=== PATIENT | female | born 2000 | race Native Hawaiian/Other Pacific Islander ===

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

== ENCOUNTER 2018-06-28 18:46 | Outpatient (CLI) | payer OTHER ==
[2018-06-28] MEDS ORDERED: LACTATED RINGERS 1,000 ML IV ONE (19:28)
[2018-06-28 19:55] LABS: Bacteria,Urine 1+ /HPF (Negative); Bilirubin,Urine NEG (Negative); Blood,Urine NEG (Negative); Color,Urine Amber (Yellow); Mucus,Urine 2+ /HPF
[2018-06-28 20:20] LABS: Basophils % (Auto) 0.6 % (0.0-1.8); Eosinophils % (Auto) 0.2 % (0.0-4.3); Hematocrit 38.4 % (30.3-42.9); Hemoglobin 13.4 gm/dl (10.1-14.3); Lymphocytes # (Auto) 1.2 K/mm3 (1.2-5.4); Lymphocytes % (Auto) 16.5 % (13.4-35.0); Mean Corpuscular HGB Conc 35 % (30-34); Mean Corpuscular Volume 91 fl (79-97); Monocytes # (Auto) 0.7 K/mm3 (0.0-0.8); Monocytes % (Auto) 8.8 % (0.0-7.3); Platelet Count 179 K/mm3 (140-440); Red Blood Count 4.24 M/mm3 (3.65-5.03); Red Cell Distribution Width 13.3 % (13.2-15.2)
[2018-06-28 20:50] LABS: Alanine Aminotransferase 33 units/L (7-56); Albumin 3.7 g/dL (3.9-5); BUN/Creatinine Ratio 14; Blood Urea Nitrogen 7 mg/dL (7-17); Calcium 8.8 mg/dL (8.4-10.2); Hemolysis Index 11
--- NOTE | 2018-06-28 20:50 | Ultrasound Report ---
PROCEDURE: US OB BPP WO NON-STRESS TECHNIQUE: Sonographic evaluation for breathing, movement, tone, and amniotic flui d volume was performed. HISTORY: well being BPP COMPARISONS: None . FINDINGS: FETUS Amniotic fluid volume Normal-score 2. At least one vertical pocket >2 cm or more in vertical axis . breathing: Normal-score 2 . movement: Normal-score 2 . tone: Normal-score 2 . Score: 8 of 8 . IMPRESSION: Normal biophysical profile . This document is electronically signed by Allison Lei DO., June 28 2018 08:47:48 PM ET
--- NOTE | 2018-06-28 20:52 | Ultrasound Report ---
PROCEDURE: US OB LIMITED TECHNIQUE: Real-time limited sonographic examination was performed for evaluation of well-bein g for each fetus with image documentation (1 or more fetuses). HISTORY: abdominal pain COMPARISONS: None . FINDINGS: There is a single fetus in a vertex presentation. heart rate 1 51 bpm. The 4 quadrant amniotic fluid volume is 8.3 cm. Length of the long the left lateral uterus. There is no evidence of previa. T here is no evidence of placental abruption. IMPRESSION: There is a single fetus in a vertex presentation. The placenta is along the left lateral uterus with no evidence of previa or abruption. This document is electronically signed by Allison Lei DO., June 28 2018 08:49:43 PM ET
[2018-06-28 21:51] VITALS: BP 100/61
--- NOTE | 2018-06-28 22:45 | Progress Note ---
Assessment and Plan A: at 38 weeks gestation. Nausea and vomiting. Dehydration; hydrated with IV LR. BPP 8/8; normal ANGELA; patient now feeling active movement. Not in active labor; contractions resolved with IV hydration. Mild tachycardia. P: Patient sent to ED by W/C for evaluation for mild tachycardia. Rx promethazine 25 mg, #20, 1 po every 6 hours prn nausea and vomiting called to [facility]. Discussed with patient bland diet and increased po fluid intake. Advised patient to perform daily movement counting. Advised patient to follow up at her [facility] clinic on Sunday07/01/18. Subjective - Subjective Date of service: 06/28/18 Principal diagnosis: at 38 weeks; nausea and vomiting for 2 days Interval history: 17 year old presents at 38 weeks gestation complaining of nausea with vomiting for past 2 days. Patient denies diarrhea. Patient denies abdominal pain, back pain, flank pain, fever, chills, or malaise. Patient reports she feels the baby move but maybe not as much as usual for the past 2 days. Patient reports irregular mild contractions. Patient denies leaking of fluid or vaginal bleeding. She denies falls or trauma. She denies vaginal discharge. She denies dysuria or urinary frequency. She denies cough, shortness of breath, or chest pain. She states has been uneventful. Patient reports: contractions (mild irregular contractions, resolved with IV hydration), no loss of fluid, no vaginal bleeding Objective - Vital Signs Vital Signs: Vital Signs - 12hr 06/28/18 06/28/18 06/28/18 19:26 19:45 21:50 Pulse Rate 113 H 104 H 103 H Blood Pressure 113/68 108/66 100/61 O2 Sat by Pulse Oximetry 06/28/18 06/28/18 06/28/18 21:56 22:01 22:06 Pulse Rate 107 H 115 H 109 H Blood Pressure O2 Sat by Pulse 97 97 96 Oximetry 06/28/18 22:11 Pulse Rate 113 H Blood Pressure O2 Sat by Pulse 98 Oximetry - Exam Narrative Exam: BPP 8/8. Normal ANGELA. Urinalysis shows ketones. Afebrile. BPs normal. Mild tachycardia noted. Abdomen: Present: normal appearance, soft. Absent: distention, tenderness, guarding, rigidity Uterus: Present: normal, fundal height above umbilicus FHR: category 1 Uterine Contraction Monitor Mode: External Uterine Contraction Pattern: Irregular Uterine Contraction Intensity: Mild Extremities: normal - Labs Labs: Abnormal Labs 06/28/18 06/28/18 06/28/18 19:30 20:03 20:03 MCHC 35 H [place] % (Auto) 8.8 H Seg Neutrophils % 73.9 H Creatinine 0.5 L Alkaline Phosphatase 220 H Albumin 3.7 L U Epithel Cells (Auto) 17.0 H Laboratory Results - last 24 hr 06/28/18 06/28/18 06/28/18 19:30 20:03 20:03 WBC 7.4 RBC 4.24 Hgb 13.4 Hct 38.4 MCV 91 MCH 32 MCHC 35 H RDW 13.3 Plt Count 179 Lymph % (Auto) 16.5 [place] % (Auto) 8.8 H Eos % (Auto) 0.2 Baso % (Auto) 0.6 Lymph # 1.2 [place] # 0.7 Eos # 0.0 Baso # 0.0 Seg Neutrophils % 73.9 H Seg Neutrophils # 5.5 Sodium 138 Potassium 3.8 Chloride 100.3 Carbon Dioxide 22 Anion Gap 20 BUN 7 Creatinine 0.5 L Estimated GFR > 60 BUN/Creatinine Ratio 14 Glucose 78 Calcium 8.8 Total Bilirubin 0.60 AST 30 ALT 33 Alkaline Phosphatase 220 H Total Protein 6.6 Albumin 3.7 L Albumin/Globulin Ratio 1.3 Urine Color [place] Urine Turbidity Slightly-cloudy Urine pH 6.0 Ur Specific [place] 1.027 Urine Protein 30 mg/dl Urine Glucose (UA) Neg Urine Ketones 80 Urine Blood Neg Urine Nitrite Neg Urine Bilirubin Neg Urine Urobilinogen 4.0 Ur Leukocyte Esterase Neg Urine WBC (Auto) 3.0 Urine RBC (Auto) 2.0 U Epithel Cells (Auto) 17.0 H Urine Bacteria (Auto) 1+ Urine Mucus 2+
== END 2018-06-28 22:40 | disposition home or self-care (01) ==
LOC: TRG 18:46
PROVIDERS: ATTEND Obstetrics & Gynecology
DX: O47.1 False labor at or after 37 completed weeks of gestation (principal); Z3A.38 38 weeks gestation of pregnancy; Z90.49 Acquired absence of other specified parts of digestive tract
CPT/HCPCS: 36415; 76815; 76819; 80053; 81001; 85025; J7120

== ENCOUNTER 2018-07-11 21:19 | Inpatient (IN) | payer OTHER ==
[2018-07-11] MEDS ORDERED: LACTATED RINGERS 1,000 ML ONE (22:26)
[2018-07-11] MEDS ORDERED: LACTATED RINGERS 1,000 ML IV ONE (22:26)
[2018-07-12] MEDS ORDERED: BRETHINE SUB-Q PRN (00:20)
[2018-07-12] MEDS ORDERED: BRETHINE IVP PRN (00:20)
[2018-07-12] MEDS ORDERED: XYLOCAINE 2% INFILTRATI ONE (00:20)
[2018-07-12] MEDS ORDERED: MINERAL OIL PO PRN (00:20)
[2018-07-12] MEDS ORDERED: SUBLIMAZE IV PRN (00:20)
--- NOTE | 2018-07-12 00:28 | Ultrasound Report ---
PROCEDURE: US OB BPP WO NON-STRESS TECHNIQUE: Real-time limited sonographic examination was performed for evaluation of biophysical pro file for each fetus with image documentation (1 or more fetuses). HISTORY: tachycardia COMPARISONS: None . FINDINGS: breathing movements: 2. movements: 2. posture and tone: 2. Qualitative amniotic fluid volume: 2. Heart rate is 160 bpm. IMPRESSION: Total score: 8/8. This document is electronically signed by Aramis Baird MD., July 12 2018 12:25:51 AM ET
[2018-07-12 00:50] LABS: Hematocrit 36.2 % (30.3-42.9); Hemoglobin 12.5 gm/dl (10.1-14.3); Mean Corpuscular HGB Conc 35 % (30-34); Mean Corpuscular Volume 90 fl (79-97); Platelet Count 201 K/mm3 (140-440); Red Cell Distribution Width 13.3 % (13.2-15.2)
[2018-07-12] MEDS ORDERED: PITOCin/NS 20 UNIT/1000ML DRIP 20 UNITS/1,000 ML BAG IV SCH (01:00)
[2018-07-12] MEDS: LACTATED RINGERS 1,000 ML IV SCH ×2 (02:45→04:00)
[2018-07-12] MEDS ORDERED: NARCAN 2 MG/2 ML IV PRN (02:47)
--- NOTE | 2018-07-12 02:47 | Anesthesia Consultation ---
Anesthesia Consult and Med Hx Date of service: 07/12/18 - Airway Anesthetic Teeth Evaluation: Good ROM Head & Neck: Adequate Mental/Hyoid Distance: Adequate Mallampati Class: Class II Intubation Access Assessment: Good - Pulmonary Exam CTA: Yes - Cardiac Exam Cardiac Exam: RRR - Pre-Operative Health Status ASA Pre-Surgery Classification: ASA2 Proposed Anesthetic Plan: Epidural - Pulmonary Hx Smoking: No Hx Asthma: No Hx Respiratory Symptoms: No SOB: No COPD: No Home Oxygen Therapy: No Hx Pneumonia: No Hx Sleep Apnea: No - Cardiovascular System Hx Hypertension: No Hx Coronary Artery Disease: No Hx Heart Attack/AMI: No Hx Angina: No Hx Percutaneous Transluminal Coronary Angioplasty (PTCA): No Hx Cardia Arrhythmia: No Hx Pacemaker: No Hx Internal Defibrillator: No Hx Valvular Heart Disease: No Hx Heart Murmur: No Hx Peripheral Vascular Disease: No - Central Nervous System Hx Neuromuscular Disorder: No Hx Seizures: No CVA: No Hx Back Pain: No Hx Psychiatric Problems: No - Gastrointestinal Hx Ulcer: No Hx Gastroesophageal Reflux Disease: No - Endocrine Hx Renal Disease: No Hx End Stage Renal Disease: No Hx Cirrhosis: No Hx Liver Disease: No Hx Insulin Dependent Diabetes: No Hx Non-Insulin Dependent Diabetes: No Hx Thyroid Disease: No Hx Hypothyroidism: No Hx Hyperthyroidism: No - Hematic Hx Anemia: No Hx Sickle Cell Disease: No - Other Systems Hx Alcohol Use: No Hx Substance Use: No Hx Cancer: No Hx Obesity: No
[2018-07-12] MEDS ORDERED: XYLOCAINE 2%/ EPI 1:200,000 INFILTRATI ONE (02:51)
[2018-07-12] MEDS: fentaNYL-BUPIV 2 MCG/ML-0.125% 200 MCG/100 ML BAG EPIDURAL SCH ×2 (03:57→11:40)
--- NOTE | 2018-07-12 09:55 | History and Physical Report ---
History of Present Illness Date of examination: 07/12/18 Date of admission: 07/12/18 00:45 Chief complaint: Intense labor pains History of present illness: 0. 17 yo Fe , DORENE 07/26/2018 ([place]), 38w0d, presents in spontaneous labor. Pt initiated early care with [facility] at 6w6d. course uncomplicated. Pt reports history of smoking (stopped 3years ago). ................................... . 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 Referral to [facility] ([facility])). denies: abnormal PAP smear, chlamydia, gonorrhea, hepatitis B, hepatitis C, herpes, HIV, syphilis, trichomonas Family/Genetic History: none Social history: no significant social history, , lives with family, full code. denies: smoking, alcohol abuse, prescription drug abuse, IV drug use - Obstetrical History Expected Date of Delivery: 07/26/18 Actual Gestation: 38 Week(s) 0 Day(s) : 2 Para: 1 Hx # Term Pregnancies: 1 Number of Pregnancies: 0 Spontaneous Abortions: 0 Induced : 0 Number of Living Children: 1 #1 Infant Gender: Female year: 2018 Birthweight: 3.175 kg Method of Delivery: Vaginal Gestational age at delivery: 39 Complications: none Medications and Allergies Allergies Allergy/AdvReac Type Severity Reaction Status Date / Time No Known Allergies Allergy Unverified 09/05/15 21:02 Home Medications Medication Instructions Recorded Confirmed Last Taken Type Ibuprofen [Motrin 800 MG tab] 800 mg PO Q8HR PRN #30 tablet 09/07/15 Unknown Rx oxyCODONE /ACETAMINOPHEN [Percocet 2 tab PO Q4HR PRN #30 tablet 09/07/15 Unknown Rx 5/325] Ferrous Sulfate [Feosol 325 MG tab] 325 mg PO BID #60 tablet 09/08/15 Unknown Rx Famotidine [Pepcid] 20 mg PO BID #60 tablet 09/17/17 Unknown Rx Ondansetron [Zofran Odt] 4 mg PO Q8HR PRN #20 tab.rapdis 09/17/17 Unknown Rx Active Meds: Active Medications Ephedrine Sulfate (Ephedrine Sulfate) 10 mg IV Q2M PRN PRN Reason: Hypotension Fentanyl (Sublimaze) 100 mcg IV Q2H PRN PRN Reason: Labor Pain Last Admin: 07/12/18 02:00 Dose: 100 mcg Documented by: Lactated Ringer's (Lactated Ringers) 1,000 mls @ 125 mls/hr IV DIRECT TATIANA Last Admin: 07/12/18 04:00 Dose: 125 mls/hr Documented by: Oxytocin/Sodium Chloride (Pitocin/Ns 20 Unit/1000ml Drip) 20 units in 1,000 mls @ 125 mls/hr IV DIRECT TATIANA Fentanyl/Bupivacaine/Sodium Chlor (Fentanyl-Bupiv 2 Mcg/Ml-0.125%) 200 mcg in 100 mls @ 12 mls/hr EPIDURAL TITR TATIANA; Protocol Last Admin: 07/12/18 03:57 Dose: 12 mls/hr Documented by: Mineral Oil (Mineral Oil) 30 ml PO QHS PRN PRN Reason: Constipation Naloxone HCl (Narcan 2 Mg/2 Ml) 0.2 mg IV Q5M PRN PRN Reason: Respiratory sedation Terbutaline Sulfate (Brethine) 0.25 mg SUB-Q ONCE PRN PRN Reason: Hyperstimulation/Hypertonicity Terbutaline Sulfate (Brethine) 0.25 mg IVP ONCE PRN PRN Reason: Hyperstimulation/Hypertonicity Review of Systems Cardiovascular: no chest pain, no shortness of breath Respiratory: no shortness of breath Breasts: normal Gastrointestinal: no nausea, no vomiting, no diarrhea, no constipation Genitourinary: normal appearance, contractions, no vaginal discharge, no leakage of fluid, no genital sores Integumentary: no rash, no sores, no lesions Psychiatric: other (Denies) - Vital Signs Vital signs: Vital Signs Pulse BP 100 H 110/70 07/11/18 21:35 07/11/18 21:35 Temp Pulse Resp BP Pulse Ox 97.6 F 112 H 20 93/51 96 07/12/18 09:34 07/12/18 09:52 07/12/18 09:34 07/12/18 09:51 07/12/18 09:52 - Physical Exam Breasts: Positive: normal Cardiovascular: Regular rate, Normal S1, Normal S2, No murmurs Lungs: Positive: Clear to auscultation, Normal air movement Abdomen: Positive: normal appearance, soft, normal bowel sounds. Negative: distention Genitourinary (Female): Positive: normal external genitalia, normal perenium Vulva: both: normal Vagina: Positive: normal moisture Uterus: Positive: enlarged (Gravid) Anus/Rectum: Positive: normal perianal skin Extremities: Positive: normal Deep Tendon Reflex Grade: Normal +2 - Obstetrical FHR: category 1 Uterine Contraction Monitor Mode: External Cervical Dilatation: 6 (AROM 07/12/18 @ 10:01, small, clear) Cervical Effacement Percentage: 90 station: -2 Uterine Contraction Frequency (min): 4-6 Uterine Contraction Pattern: Regular Uterine Tone Measurement Phase: Resting Uterine Contraction Intensity: Moderate Results Result Diagrams: 07/11/18 22:39 Abnormal lab results 07/11/18 Range/Units 22:39 WBC 11.1 H (4.5-11.0) K/mm3 MCHC 35 H (30-34) % All other labs normal. Assessment and Plan A: Term IUP @38w 0d Category 1 tracing Active labor GBS negative Comfortable with epidural AROM 07/12/18 @10:01, small, clear P: Admit to L&D; Routine labor orders Pitocin augmentation Anticipate
[2018-07-12] MEDS ORDERED: PITOCin/NS 30 UNIT/500ML 30 UNITS/500 ML BAG IV SCH (11:00)
[2018-07-12] MEDS ORDERED: XYLOCAINE MPF 2% ONE (12:14)
[2018-07-12] MEDS ORDERED: TYLENOL PO PRN (15:25)
[2018-07-12] MEDS ORDERED: LANSINOH TP PRN (15:25)
[2018-07-12] MEDS ORDERED: ZOFRAN IV PRN (15:25)
[2018-07-12] MEDS ORDERED: MILK OF MAGNESIA PO PRN (15:25)
[2018-07-12] MEDS ORDERED: PHENERGAN PO PRN (15:25)
[2018-07-12] MEDS ORDERED: DULCOLAX PR PRN (15:25)
[2018-07-12] MEDS ORDERED: BENADRYL PO PRN (15:25)
[2018-07-12] MEDS ORDERED: NORCO 5/325 PO PRN (15:25)
--- NOTE | 2018-07-12 15:35 | Procedure Note ---
OB Delivery Note - Delivery Date of Delivery: 07/12/18 (14:48) Surgeon: GALO MORALES (JOSE) Estimated blood loss: 100cc - Vaginal Delivery presentation: vertex Delivery position: OP (Straight) Intrapartum events: none Delivery induction: none Delivery augmentation: rupture of membranes Delivery monitor: external FHT, external uterine Route of delivery: (14:48) Delivery placenta: spontaneous (14:55) Delivery cord: nuchal cord (x3, delivered intact via somersault maneuver), 3 umbilical vessels Episiotomy: none Delivery laceration: 1st degree (small; left unrepaired) Anesthesia: epidural Delivery comments: viable male infant, straight OP presentation, Nuchal cord x3, delivered intact via somersault maneuver over small 1st degree laceration at 14:48. Cord reduced x3, infant dried and stimulated, then vigorous placed on mothers abdomen. Delayed cord clamping; then cut by FOB with my guidance. Cord blood col lected per protocol. Spontaneous solis delivery of intact placenta at 14:55. 3vc. Discarded. FF@U-2. Bleeding small. Small first degree laceration approximates well. Left unrepaired. EBL 100cc. Infant and mother left in stable condition in L&D. - A at 1 minute: 8 at 5 minutes: 9 Gender: Male (7lbs 1oz, 3199grams, 19.5")
[2018-07-12] MEDS ORDERED: SODIUM CHLORIDE FLUSH SYRINGE 10 ML IV NR (16:00)
--- NOTE | 2018-07-12 16:15 | Post Anesthesia Evaluation ---
- Post Anesthesia Evaluation Patient Participated: Yes Airway Patent: Yes Stable Respiratory Function: Yes Nausea/Vomiting: No Temp > 96.8F: Yes Pain Manageable: Yes Adequeate Hydration: Yes Anesthesia Complications: No Block Receding Appropriately: Yes Patient on Ventilator: No
[2018-07-12] MEDS: IBUPROFEN PO SCH (18:10)
[2018-07-12] MEDS: TUCKS PAD TP PRN (21:36)
[2018-07-12] MEDS ORDERED: DERMOPLAST TP PRN (21:42)
[2018-07-13] MEDS ORDERED: IBUPROFEN ONE (02:50)
[2018-07-13 03:54] LABS: Hematocrit 31.4 % (30.3-42.9); Hemoglobin 10.8 gm/dl (10.1-14.3)
[2018-07-13] MEDS: IBUPROFEN PO SCH ×3 (05:49→16:11)
--- NOTE | 2018-07-13 11:30 | Progress Note ---
Assessment and Plan A: day 1 S/P spontaneous vaginal delivery. Anemia secondary to and blood loss. P: Iron supplementation. Anticipate discharge tomorrow. Subjective - Subjective Date of service: 07/13/18 Principal diagnosis: day 1 S/P spontaneous vaginal delivery. Interval history: day 1 S/P spontaneous vaginal delivery. Patient is doing well. She reports a small amount of lochia. Patient is voiding without difficulty and passing gas. She is ambulating well. She is tolerating a regular diet without nausea or vomiting. Patient denies headache, cough, chest pain, shortness of breath, dizziness, leg pain, abdominal pain, or heavy bleeding. Patient reports: appetite normal, voiding normally, pain well controlled, flatus, ambulating normally, no dizzy ambulation, no nauseated : doing well Objective - Vital Signs Latest vital signs: Vital Signs Temp Pulse Resp BP BP Pulse Ox 07/13/18 08:14 98.5 F 69 16 106/74 98 07/13/18 05:49 18 07/13/18 04:35 98.2 F 79 20 114/78 07/13/18 00:00 98.2 F 83 20 94/61 98 07/12/18 18:10 20 07/12/18 17:25 99.8 F H 95 H 20 111/74 97 07/12/18 15:41 111 H 109/71 07/12/18 15:26 106 H 103/57 07/12/18 15:11 118 H 95/52 07/12/18 14:55 117 H 95/52 07/12/18 14:54 103 H 109/58 07/12/18 14:45 96 H 84 07/12/18 14:40 110 H 100 07/12/18 14:35 124 H 100 07/12/18 14:30 119 H 99 07/12/18 14:25 99 H 97 07/12/18 14:20 118 H 100 07/12/18 14:15 122 H 100 07/12/18 14:10 123 H 99 07/12/18 14:09 129 H 134/79 07/12/18 14:05 106 H 100 07/12/18 14:00 109 H 99 07/12/18 13:55 111 H 99 07/12/18 13:54 118 H 141/79 07/12/18 13:50 115 H 99 07/12/18 13:45 123 H 98 07/12/18 13:41 108 H 129/63 07/12/18 13:40 104 H 99 07/12/18 13:35 111 H 99 07/12/18 13:30 107 H 99 07/12/18 13:25 97 H 95 07/12/18 13:24 107 H 122/73 07/12/18 13:20 97 H 96 07/12/18 13:15 110 H 95 07/12/18 13:10 104 H 97 07/12/18 13:09 88 126/74 07/12/18 13:05 106 H 96 07/12/18 13:00 107 H 96 07/12/18 12:55 107 H 97 07/12/18 12:54 100 H 131/70 07/12/18 12:50 110 H 97 07/12/18 12:45 99 H 98 07/12/18 12:40 114 H 97 07/12/18 12:38 96 H 128/71 07/12/18 12:36 102 H 125/71 07/12/18 12:35 107 H 96 07/12/18 12:34 91 H 130/76 07/12/18 12:32 96 H 124/75 07/12/18 12:30 97 H 121/70 96 07/12/18 12:28 100 H 123/70 07/12/18 12:26 100 H 124/73 07/12/18 12:25 95 H 125/72 98 07/12/18 12:23 95 H 93 07/12/18 12:22 95 H 119/71 07/12/18 12:20 101 H 113/70 99 07/12/18 12:19 91 H 121/76 07/12/18 12:15 109 H 119/67 99 07/12/18 12:07 122 H 120/72 07/12/18 12:03 111 H 93 07/12/18 12:02 109 H 95 07/12/18 11:57 91 H 98 07/12/18 11:53 101 H 131/73 07/12/18 11:52 107 H 97 07/12/18 11:47 92 H 98 07/12/18 11:42 92 H 98 07/12/18 11:37 118 H 97 04/05/19 11:36 103 H 112/62 04/05/19 11:32 96 H 96 Intake and Output 07/12/18 07/13/18 07/13/18 23:59 07:59 15:59 Intake Total 240 Output Total 1000 Balance -1000 240 Intake: Oral 240 Output: Urine 1000 Void 1000 Other: Total, Intake Amount 240 Total, Output Amount 200 # Voids Void 3 1 - Exam Cardiovascular: Present: Regular rate, Normal S1, Normal S2 Lungs: Present: Clear to auscultation Abdomen: Present: normal appearance, soft, normal bowel sounds. Absent: distention, tenderness, guarding, rigidity Uterus: Present: normal, firm, fundal height below umbilicus. Absent: bogginess, tenderness Extremities: Present: normal. Absent: tenderness, edema
[2018-07-13] MEDS: FEOSOL PO SCH (14:42)
[2018-07-14] MEDS: IBUPROFEN PO SCH ×2 (00:07→09:56)
[2018-07-14] MEDS: FEOSOL PO SCH ×2 (00:11→09:57)
[2018-07-14] MEDS: TUCKS PAD TP PRN (09:55)
--- NOTE | 2018-07-14 11:39 | Progress Note ---
Assessment and Plan A: day 2 S/P spontaneous vaginal delivery. Anemia secondary to and blood loss. P: Discharge patient home today. Advised patient to continue taking her vitamins and iron supplements at home (patient states she has both medications at home). disharge instructions and warning signs discussed with jeanine rivas in detail. Advised patient to avoid intercourse, lifting and heavy housework, driving. Advised patient to follow up in OB clinic in 6 weeks for exam. Patient states she has already called clinic for appointment. Patient voiced understanding of all instructions. Subjective - Subjective Date of service: 07/14/18 Principal diagnosis: day 2 S/P spontaneous vaginal delivery. Interval history: day 2 S/P spontaneous vaginal delivery. Doing well. Patient desires discharge today. Patient reports a small amount of lochia and denies clots. Voiding without difficulty. Ambulating well. Tolerating a regular diet without nausea or vomiting. Patient denies headache, chest pain, SOB, cough, leg pain, depression, heavy bleeding, or any other problems. Patient reports: appetite normal, voiding normally, pain well controlled, flatus, ambulating normally, no dizzy ambulation, no nauseated : doing well Objective - Vital Signs Latest vital signs: Vital Signs Temp Pulse Resp BP BP Pulse Ox 07/14/18 07:56 97.6 F 64 20 109/72 96 07/14/18 00:07 18 07/14/18 00:00 98.0 F 66 20 120/80 07/13/18 17:01 97.5 F L 72 16 98/61 97 Intake and Output 07/13/18 07/14/18 07/14/18 23:59 07:59 15:59 Intake Total 240 240 Balance 240 240 Intake: Oral 240 240 Other: Total, Intake Amount 240 240 # Voids Void 1 1 - Exam Cardiovascular: Present: Regular rate, Normal S1, Normal S2, No murmurs Lungs: Present: Clear to auscultation Abdomen: Present: normal appearance, soft, normal bowel sounds. Absent: distention, tenderness, guarding, rigidity Uterus: Present: normal, firm, fundal height below umbilicus. Absent: bogginess, tenderness Extremities: Present: normal. Absent: tenderness, edema
--- NOTE | 2018-07-14 11:42 | Discharge Summary ---
Providers - Providers Date of Admission: 07/12/18 00:45 Date of discharge: 07/14/18 Attending physician: KEVIN GUARDADO MD None Primary care physician: KEVIN GUARDADO MD Hospitalization Reason for admission: active labor Delivery: Episiotomy: none Laceration: 1st degree Other procedures: none complications: none Discharge diagnosis: IUP at term delivered [place] baby: male Pertinent studies: Labs Hospital course: Normal hospital course. Condition at discharge: Good Disposition: DC-01 TO HOME OR SELFCARE - Discharge Diagnoses (1) Term delivered Status: Acute (2) Anemia due to blood loss Status: Acute Plan - Provider Discharge Summary Activity: routine, no sex for 6 weeks, no heavy lifting 4 weeks, no strenuous ex ercise Diet: routine Instructions: routine Additional instructions: Continue taking your vitamins and iron supplements at home. Call your doctor immediately for: * Fever > 100.5 * Heavy vaginal bleeding ( >1 pad per hour) * Severe persistent headache * Shortness of breath * Reddened, hot, painful area to leg or breast - Follow up plan Follow up: KEVIN GUARDADO MD [Primary Care Provider] - 6 Weeks Forms: [facility] Discharge Summary, Discharge Signature Page
[2018-07-14 12:53] VITALS: BP 112/81
== END 2018-07-14 13:07 | disposition home or self-care (01) | DRG 806 ==
LOC: TRG 21:19 → LD 07-12 00:45 → OB 07-12 17:27
PROVIDERS: ADMIT Obstetrics & Gynecology; ATTEND Obstetrics & Gynecology
PROC: 10E0XZZ Delivery of Products of Conception, External Approach (ICD-10-PCS; principal; 2018-07-12)
PROC: 3E0R3BZ Introduction of Anesthetic Agent into Spinal Canal, Percutaneous Approach (ICD-10-PCS; 2018-07-12)
PROC: 00HU33Z Insertion of Infusion Device into Spinal Canal, Percutaneous Approach (ICD-10-PCS; 2018-07-12)
PROC: 10907ZC Drainage of Amniotic Fluid, Therapeutic from Products of Conception, Via Natural or Artificial Opening (ICD-10-PCS; 2018-07-12)
DX: O69.81X0 Labor and delivery complicated by cord around neck, without compression, not applicable or unspecified (principal); D62 Acute posthemorrhagic anemia; Z37.0 Single live birth; O99.02 Anemia complicating childbirth; O70.0 First degree perineal laceration during delivery; Z87.891 Personal history of nicotine dependence; Z90.49 Acquired absence of other specified parts of digestive tract; Z3A.38 38 weeks gestation of pregnancy; Z79.899 Other long term (current) drug therapy
CPT/HCPCS: 36415; 76819; 85014; 85018; 85027; 86592; 86850; 86900; 86901; G0378; A6250; J2590; J3010; J7120

== ENCOUNTER 2021-11-03 00:50 | Emergency (ER) | payer MEDICAID, OTHER ==
[2021-11-03 01:30] VITALS: BP 98/53
[2021-11-03 01:56] LABS: Bacteria,Urine 1+ /HPF (Negative); Mucus,Urine 3+ /HPF
[2021-11-03 01:57] LABS: Bilirubin,Urine Negative (Negative); Color,Urine Yellow (Yellow)
[2021-11-03 01:58] LABS: Blood,Urine Negative (Negative); Protein,Urine <30 mg dL mg/dL (Negative); Urobilinogen,Urine 0.2 mg/dL (<2.0)
[2021-11-03 01:59] LABS: HCG Qualitative,Urine Negative (Negative)
[2021-11-03 02:06] LABS: Basophils # (Auto) 0.1 K/mm3 (0.0-0.1); Basophils % (Auto) 0.6 % (0.0-1.8); Eosinophils # (Auto) 0.1 K/mm3 (0.0-0.4); Eosinophils % (Auto) 0.9 % (0.0-4.3); Hematocrit 36.2 % (30.3-42.9); Hemoglobin 12.4 gm/dl (10.1-14.3); Lymphocytes # (Auto) 4.2 K/mm3 (1.2-5.4); Lymphocytes % (Auto) 32.5 % (13.4-35.0); Mean Corpuscular HGB Conc 34 % (30-34); Mean Corpuscular Volume 84 fl (79-97); Monocytes # (Auto) 0.9 K/mm3 (0.0-0.8); Monocytes % (Auto) 6.8 % (0.0-7.3); Platelet Count 196 K/mm3 (140-440); Red Blood Count 4.32 M/mm3 (3.65-5.03); Red Cell Distribution Width 13.9 % (13.2-15.2)
[2021-11-03 02:19] LABS: Blood Urea Nitrogen 17 mg/dL (7-17); Calcium 9.8 mg/dL (8.4-10.2); Hemolysis Index 2
[2021-11-03 02:21] LABS: BUN/Creatinine Ratio 24
== END 2021-11-03 06:00 ==
LOC: ED 00:50
DX: R10.9 Unspecified abdominal pain (principal); Z53.21 Procedure and treatment not carried out due to patient leaving prior to being seen by health care provider
CPT/HCPCS: 36415; 80048; 81001; 81025; 85025